=== PATIENT | female | born 1975 | race Caucasian/White ===

== ENCOUNTER 2017-07-25 21:28 | Emergency (ER) | payer OTHER ==
[2017-07-25 21:49] VITALS: BP 123/79; PULSE 67; TEMP 97.9; BMI 60.2
--- NOTE | 2017-07-25 21:49 | PDOC ---
Rapid Medical Evaluation Chief Complaint: Pain, Acute Time Seen by Provider: 07/25/17 21:46 Medical Evaluation: Allergies Allergy/AdvReac Type Severity Reaction Status Date / Time No Known Allergies Allergy Verified 03/23/12 21:13 07/25/17 21:46 I have performed a brief in-person evaluation of this patient The patient reports epigastric pain that pierces through to back x 1 hour Denies nausea, vomiting or diarrhea/constipation. States had homemade fried fish today with rice. Pertinent physical exam findings are: NAD unlabored breathing lungs clear +tenderness of epigastrium area with deep palpation abdomen soft I have ordered the following: ekg ordered The patient will proceed to the ED for further evaluation.
--- NOTE | 2017-07-25 23:10 | PDOC ---
Attending Attestation - Resident Resident Name: RolandJune - ED Attending Attestation I have performed the following: I have examined & evaluated the patient, The case was reviewed & discussed with the resident, I agree w/resident's findings & plan, Exceptions are as noted - HPI HPI: 07/26/17 00:55 42 yo female with no significant PMH p/w epigastric pain that started tonight HEENT wnl neck supple lungs cta b/l cvs [id number] abdominal exam +epigastric tenderness extremities wnl skin warm,dry,no rashes neuro no gross focal neuro deficits - Physicial Exam PE: 07/27/17 02:18 wnwd 42 yo female head normocephaluc atraumatic neck supple lungs cta b/l cvs [id number] abdominal pain epigastric pain ext no e/e/e neuro axox3 , ambulatory - Medical Decision Making 07/26/17 00:57 concern for cholecystitis/gerd/ulcer /possible atypical cardiac presentation 07/27/17 02:17 pt had gallstone but her symptoms resolved and she was able to eat and wanted to follow up as an outpt
[2017-07-25] MEDS ORDERED: SODIUM CHLORIDE 1,000 ML IV STA (23:34)
[2017-07-25] MEDS ORDERED: FAMOTIDINE 20 MG/50 ML IVPB 20 MG/50 ML MG IVPB ONE (23:34)
--- NOTE | 2017-07-25 23:43 | PDOC ---
History of Present Illness - General Chief Complaint: Pain, Acute Stated Complaint: ABD PAIN Time Seen by Provider: 07/25/17 21:46 History Source: Patient Exam Limitations: No Limitations - History of Present Illness Initial Comments: 42 YOF with h/o GERD and thyroiditis who p/w constant epigastric pain up to 9/ 10 maximum since 6 pm tonight which has been slightly improving since she arrived to the ED. It feels like pressure and radiates to her mid-back, is not alleviated or exacerbated by any factors, and she has never had this type of pain before. She took #3 baby ASA after the onset. She additionally notes chills and headache with onset concurrent with the abdominal pain, but the headache has resolved. She denies nausea, vomiting, diarrhea, constipation, fever, dizziness, dysuria, vaginal discharge, SOB, chest pain, or other symptoms. Her last menstrual period ended yesterday and was normal. Past History - Past Medical History Allergies/Adverse Reactions: Allergies Allergy/AdvReac Type Severity Reaction Status Date / Time No Known Allergies Allergy Verified 03/23/12 21:13 Home Medications: Ambulatory Orders Ciprofloxacin [Cipro (Restricted To Id)] 250 mg PO BID #6 tablet 04/17/15 Asthma: No Cancer: No Cardiac Disorders: No Diabetes: No HTN: No Seizures: No Thyroid Disease: No - Surgical History Abdominal Surgery: No - Reproductive History (#): 4 Para: 3 (uncomplicated ) Dysfunctional Uterine Bleeding: No - Suicide/Smoking/Psychosocial Hx Smoking Status: No Smoking History: Never smoked Have you smoked in the past 12 months: No Number of Cigarettes Smoked Daily: 0 Information on smoking cessation initiated: No Hx Alcohol Use: No Drug/Substance Use Hx: No Hx Substance Use Treatment: No Abd/GI Specific PMHX - Complaint Specific PMHX Colitis: No Diverticulitis: No Gall Bladder Disease: No GERD: No Hepatitis: No Irritable Bowel Synd (IBS): No Pancreatitis: No GI Ulcer Disease: No Review of Systems - Review of Systems Constitutional: Yes: Chills. No: Fever, Unexplained wgt Loss HEENTM: No: Nose Congestion, Throat Pain Respiratory: No: Cough, Shortness of Breath Cardiac (ROS): No: Chest Pain, Palpitations ABD/GI: Yes: Other (abdominal pain). No: Constipated, Diarrhea, Nausea, Vomiting : No: Burning, Dysuria Musculoskeletal: No: Back Pain, Neck Pain Integumentary: No: Bruising, Rash Neurological: Yes: Headache (resolved). No: Numbness, Tingling, Weakness, Dizziness Endocrine: No: Unexplained Weight Gain, Unexplained Weight Loss *Physical Exam - Vital Signs Last Vital Signs Temp Pulse Resp BP Pulse Ox 97.9 F 67 20 123/79 99 07/25/17 21:45 07/25/17 21:45 07/25/17 21:45 07/25/17 21:45 07/25/17 21:45 - Physical Exam General Appearance: Yes: Nourished, Appropriately Dressed, Mild Distress, Other (average BMI adult female laying in hospital bed with family at bedside, answers appropriately) HEENT: positive: EOMI, Normal Voice, Hearing Grossly Normal. negative: Scleral Icterus (R), Scleral Icterus (L), Nasal Congestion Neck: positive: Trachea midline, Supple. negative: Tender, Rigid Respiratory/Chest: positive: Lungs Clear, Normal Breath Sounds. negative: Respiratory Distress, Crackles, Rhonchi, Stridor, Wheezing Cardiovascular: positive: Regular Rhythm, Regular Rate. negative: Murmur Gastrointestinal/Abdominal: positive: Tender (epigastric and upper umbilical mild ttp), Soft, Increased Bowel Sounds. negative: Organomegaly, Pulsatile Mass , Guarding Musculoskeletal: positive: Normal Inspection. negative: CVA Tenderness, Decreased Range of Motion, Vertebral Tenderness Extremity: positive: Normal Capillary Refill, Normal Inspection, Normal Range of Motion. negative: Tender, Cyanosis Integumentary: positive: Normal Color, Dry, Warm. negative: Erythema, Rash, Bruising Neurologic: positive: building stonecutter II-XII NML intact (grossly), Fully Oriented, Alert, Normal Mood/Affect, Normal Response, Motor Strength 5/5 Heart Score/ECG Review - History History: Slightly suspicious ED Treatment Course - LABORATORY CBC & Chemistry Diagram: 07/26/17 00:00 07/26/17 00:00 Medical Decision Making - Medical Decision Making 42 YOF p/w epigastric and RUQ pain. On exam she has ttp epigastrium, minimal to RUQ. DDX IBNLT pancreatitis, cholecystitis, biliary colic, PUD, gastritis, GERD, etc. Ordered is CBCD, CMP, lipase, RUQ US. Lab work results non-directive, lipase negative, no significant leukocytosis, normal bili. RUQ US shows large >2 cm stone in gallbladder neck which could possibly be obstructing. However the patient is no longer painful after observation period. States she is hungry and tolerates trial of nalini crackers and apple juice. She is comfortable with plan to discharge home and f/u with GI as outpatient. Return precautions are discussed. She will return to ER for fever, increased pain, jaundice, confusion, dizziness/ HERNANDEZ. *DC/Admit/Observation/Transfer Diagnosis at time of Disposition: Cholelithiasis Qualifiers: Cholelithiasis location: gallbladder Cholecystitis presence: without cholecystitis Biliary obstruction: without biliary obstruction Qualified Code(s) : K80.20 - Calculus of gallbladder without cholecystitis without obstruction - Discharge Dispostion Disposition: HOME Condition at time of disposition: Stable Admit: No - Referrals Referrals: Tosha Flores MD [Primary Care Provider] - - Patient Instructions Printed Discharge Instructions: DI for Gallstones Additional Instructions: You were seen in the ER for abdominal pain. We did lab work which was all normal. We also did an ultrasound of your gallbladder and this showed a large stone within the gallbladder. There does not appear to be a current gallbladder infection or other problem that would require surgery right now. Please follow up with a sales development specialist about your gallbladder stone (Dr. Sahni at ) and tell him you were seen in the ER. Return to the ER for any new or worsening symptoms, especially if you have fever, vomiting, severe pain, yellowish coloration to your skin, confusion, or dizziness/headache. Avoid fatty /greasy foods because this can worsen pain with gallbladder stones. Print Language: SENEGALESE - Post Discharge Activity
[2017-07-26 00:17] LABS: BASOPHIL 0.6 % (0-2.0); EOSINOPHIL 0.5 % (0-4.5); MCH 27.4 pg (25.7-33.7); MCHC 33.5 g/dl (32.0-36.0); MEAN CELL VOLUME 81.7 fl (80-96); MEAN PLT VOLUME 8.5 fl (7.5-11.1); NEUTROPHILS 78.8 % (42.8-82.8); PLATELET COUNT 265 K/MM3 (134-434); RDW 14.7 % (11.6-15.6); WHITE BLOOD COUNT 9.7 K/mm3 (4.0-10.0)
[2017-07-26 00:58] LABS: ALBUMIN 4.3 g/dl (3.4-5.0); ALK PHOS 91 U/L (45-117); ANION GAP 12 (8-16); BILIRUBIN,TOTAL 0.3 mg/dL (0.2-1.0); CALCIUM 8.8 mg/dL (8.5-10.1); CO2 25 mmol/L (21-32); CREATININE 0.7 mg/dL (0.55-1.02); GLUCOSE,RANDOM 106 mg/dL (74-106); SGOT/AST 20 U/L (15-37); SGPT/ALT 33 U/L (12-78); TOT PROT 8.4 g/dl (6.4-8.2)
[2017-07-26 01:00] LABS: CPK 75 IU/L (26-192); TROPONIN I < 0.02 ng/ml (0.00-0.05)
[2017-07-26 01:40] LABS: URINE APPEARANCE CLEAR; URINE BILIRUBIN NEGATIVE (NEGATIVE); URINE BLOOD NEGATIVE (NEGATIVE); URINE COLOR STRAW; URINE GLUCOSE (UA) NEGATIVE (NEGATIVE); URINE KETONE NEGATIVE (NEGATIVE); URINE NITRITE NEGATIVE (NEGATIVE); URINE PROTEIN NEGATIVE (NEGATIVE); URINE UROBILINOGEN NEGATIVE mg/dL (0.2-1.0)
[2017-07-26 11:43] LABS: URINE LEUK ESTERASE Negative (NEGATIVE)
--- NOTE | 2017-07-26 12:41 | EKG ---
Test Reason : Blood Pressure : / mmHG Vent. Rate : 068 BPM Atrial Rate : 068 BPM P-R Int : 134 ms QRS Dur : 084 ms QT Int : 410 ms P-R-T Axes : 042 058 038 degrees QTc Int : 435 ms SINUS RHYTHM RIGHT AXIS DEVIATION NO PREVIOUS ECGS AVAILABLE REPEAT EKG IF CLINICALLY INDICATED Confirmed by NADINE STANTON MD ([id number]) on 07/26/2017 12:41:45 PM Referred By: Confirmed By:NADINE STANTON MD
== END 2017-07-26 04:19 | disposition home or self-care (01) ==
LOC: JER 21:28
PROC: 3E033GC Introduction of Other Therapeutic Substance into Peripheral Vein, Percutaneous Approach (ICD-10-PCS; principal; 2017-07-25)
DX: K80.20 Calculus of gallbladder without cholecystitis without obstruction (principal); K21.9 Gastro-esophageal reflux disease without esophagitis; E06.9 Thyroiditis, unspecified
CPT/HCPCS: 36415; 76705-TC; 80053; 81003; 82550; 83690; 84484; 84703; 85025; 87086; 93005; 93010; 96365; 99282-25

== ENCOUNTER 2018-12-23 20:19 | Inpatient (IN) | payer OTHER ==
--- NOTE | 2018-12-23 21:07 | PDOC ---
History of Present Illness - General Chief Complaint: Pain, Acute Stated Complaint: STOMACH PAIN Time Seen by Provider: 12/23/18 21:06 - History of Present Illness Initial Comments: 12/23/18 21:07 Ms. Lobo is a 42 yo female w/ pmh of GERD and thyroiditis who presents for evaluation of 3 day history of upper abdominal pain with additional nausea and vomiting. Patient reports the pain was intermittent at first however became worse today, prompting her visit. Patient denies any other symptoms at this time. She has not taken anything for the pain. The patient denies chest pain, shortness of breath, headache and dizziness. Denies fever, chills, diarrhea and constipation. Denies dysuria, frequency, urgency and hematuria. Past History - Past Medical History Allergies/Adverse Reactions: Allergies Allergy/AdvReac Type Severity Reaction Status Date / Time No Known Allergies Allergy Verified 12/23/18 20:35 Home Medications: Ambulatory Orders Ciprofloxacin [Cipro (Restricted To Id)] 250 mg PO BID #6 tablet 04/17/15 Asthma: No Cancer: No Cardiac Disorders: No COPD: No Diabetes: No HTN: No Seizures: No Thyroid Disease: No - Surgical History Abdominal Surgery: No - Reproductive History (#): 4 Para: 3 (uncomplicated ) Dysfunctional Uterine Bleeding: No - Immunization History Immunization Up to Date: Yes - Suicide/Smoking/Psychosocial Hx Smoking Status: No Smoking History: Never smoked Have you smoked in the past 12 months: No Number of Cigarettes Smoked Daily: 0 Hx Alcohol Use: No Drug/Substance Use Hx: No Hx Substance Use Treatment: No Review of Systems - Review of Systems Comments:: 12/23/18 23:14 GENERAL/CONSTITUTIONAL: No fever or chills. No weakness. HEAD, EYES, EARS, NOSE AND THROAT: No change in vision. No ear pain or discharge. No sore throat. CARDIOVASCULAR: No chest pain or shortness of breath RESPIRATORY: No cough, wheezing, or hemoptysis. GASTROINTESTINAL: +N/V + epigastric abdominal pain x3 days. GENITOURINARY: No dysuria, frequency, or change in urination. MUSCULOSKELETAL: No joint or muscle swelling or pain. No neck or back pain. SKIN: No rash NEUROLOGIC: No headache, vertigo, loss of consciousness, or change in strength/ sensation. ENDOCRINE: No increased thirst. No abnormal weight change HEMATOLOGIC/LYMPHATIC: No anemia, easy bleeding, or history of blood clots. ALLERGIC/IMMUNOLOGIC: No hives or skin allergy. *Physical Exam - Vital Signs Last Vital Signs Temp Pulse Resp BP Pulse Ox 98.3 F 79 16 117/66 100 12/23/18 20:33 12/23/18 20:33 12/23/18 20:33 12/23/18 20:33 12/23/18 20:33 - Physical Exam Comments: 12/23/18 23:15 GENERAL: Awake, alert, and fully oriented, in no acute distress HEAD: No signs of trauma, normocephalic, atraumatic EYES: PERRLA, EOMI, sclera anicteric, conjunctiva clear ENT: Auricles normal inspection, hearing grossly normal, nares patent, oropharynx clear without exudates. Moist mucosa NECK: Normal ROM, supple, no lymphadenopathy, JVD, or masses LUNGS: No distress, speaks full sentences, clear to auscultation bilaterally HEART: Regular rate and rhythm, normal S1 and S2, no murmurs, rubs or gallops, peripheral pulses normal and equal bilaterally. ABDOMEN: +Epigastric ttp, soft, normoactive bowel sounds. No guarding, no rebound. No masses EXTREMITIES: Normal inspection, Normal range of motion, no edema. No clubbing or cyanosis. NEUROLOGICAL: Cranial nerves II through XII grossly intact. Normal speech, normal gait, no focal sensorimotor deficits SKIN: Warm, Dry, normal turgor, no rashes or lesions noted. ED Treatment Course - LABORATORY CBC & Chemistry Diagram: 12/23/18 22:05 12/23/18 22:05 Medical Decision Making - Medical Decision Making 12/23/18 23:15 Ms. Lobo is a 43 yo female w/ pmh as described who presents for evaluation of symptoms concerning for GERD vs. atypical ACS vs. Gastritis. Patient evaluated with EKG and labs as below. Laboratory analysis grossly wnl as below. Patient vomited shortly after getting tylenol so IV given as replacement. Patient continuing to have pain following symptomatic relief with pepcid, fluids , maalox, viscous lidocaine - CT Abdomen/Pelvis ordered for further evaluation. 12/24/18 01:07 Patient noted to have cholecystitis on CT w/ 15mm stone in gall bladder neck. Patient will be admitted for further care. Surgery paged. 12/24/18 01:[address] Gutierrez who requested zosyn antibiosis and will evaluate. 12/24/18 01:57 Patient signed out to Dr. Choudhury for further evaluation. Laboratory Results - last 24 hr 12/23/18 12/23/18 12/23/18 22:05 22:05 22:05 WBC 9.9 RBC 4.29 Hgb 9.6 L Hct 29.7 L D MCV 69.3 L MCH 22.4 L MCHC 32.3 RDW 17.4 H Plt Count 318 MPV 8.9 Absolute Neuts (auto) 6.9 Neutrophils % 69.4 Lymphocytes % 23.2 D Monocytes % 5.9 Eosinophils % 0.9 Basophils % 0.6 Nucleated RBC % 0 Sodium 136 Potassium 3.5 Chloride 103 Carbon Dioxide 25 Anion Gap 8 BUN 12 Creatinine 0.6 Creat Clearance w eGFR 109.63 Random Glucose 113 H Calcium 8.8 Total Bilirubin 0.3 AST 18 ALT 26 Alkaline Phosphatase 84 Creatine Kinase Troponin I Total Protein 7.9 Albumin 3.9 Lipase 129 Serum , Qual Urine Color Yellow Urine Appearance Clear Urine pH 6.0 Ur Specific [place] 1.010 Urine Protein Negative Urine Glucose (UA) Negative Urine Ketones Negative Urine Blood Negative Urine Nitrite Negative Urine Bilirubin Negative Urine Urobilinogen 1.0 Ur Leukocyte Esterase Negative 12/23/18 12/23/18 22:05 22:05 WBC RBC Hgb Hct MCV MCH MCHC RDW Plt Count MPV Absolute Neuts (auto) Neutrophils % Lymphocytes % Monocytes % Eosinophils % Basophils % Nucleated RBC % Sodium Potassium Chloride Carbon Dioxide Anion Gap BUN Creatinine Creat Clearance w eGFR Random Glucose Calcium Total Bilirubin AST ALT Alkaline Phosphatase Creatine Kinase 65 Troponin I < 0.02 Total Protein Albumin Lipase Serum , Qual Negative Urine Color Urine Appearance Urine pH Ur Specific [place] Urine Protein Urine Glucose (UA) Urine Ketones Urine Blood Urine Nitrite Urine Bilirubin Urine Urobilinogen Ur Leukocyte Esterase 12/24/18 01:59 *DC/Admit/Observation/Transfer Diagnosis at time of Disposition: Cholecystitis - Discharge Dispostion Decision to Admit order: Yes - Referrals - Patient Instructions - Post Discharge Activity
--- NOTE | 2018-12-23 21:08 | PDOC ---
Attending Attestation - HPI HPI: This patient is a 43 year old slovenian speaking female with PMHx of GERD and thyroiditis who presents with a 5 day history of worsening epigastric pain. She describes her abdominal pain as a burning, squeezing sensation that was initially intermittent, and now constant. She reports associated nausea but denies vomit. Denies prior history of abdominal pain. She is uncomfortable appearing upon presentation. - Physicial Exam PE: GENERAL: Awake, alert, and fully oriented, uncomfortable appearing. HEAD: No signs of trauma LUNGS: Breath sounds equal, clear to auscultation bilaterally. No wheezes, and no crackles HEART: Regular rate and rhythm, normal S1 and S2, no murmurs, rubs or gallops ABDOMEN: Soft, epigastric tenderness upon palpation, normoactive bowel sounds. No guarding, no rebound. No masses EXTREMITIES: Normal range of motion, no edema. No clubbing or cyanosis. No cords, erythema, or tenderness NEUROLOGICAL: Cranial nerves II through XII grossly intact. Normal speech. SKIN: Warm, Dry, normal turgor, no rashes or lesions noted. <Amena Parnell - Last Filed: 12/23/18 21:55> - Resident Resident Name: Prateek Akhtar - Medical Decision Making 12/23/18 23:06 Pt presents to the ED complaining of epigastric pain and nausea without vomiting. Differential included gastritis, pancreatitis, less likely biliary disease and less likely ACS. Labs are within normal limits, including comprehensive metabolic panel and cardiac profile. EKG is normal. Patient feels improved after pepcid and zofran. Will discharge home with rx for pepcid. 12/24/18 01:13 Patient had persistent pain, so CT abdomen and pelvis was performed that shows cholecystitis with very large stone in gallbladder neck. Will admit to surgery and start antibiotics. <Shara Mata - Last Filed: 12/24/18 01:14> Attestations - Attestations 12/23/18 21:53 Documentation prepared by Amena Parnell, acting as medical education coordinator for Shara Mata MD. <Amena Parnell - Last Filed: 12/23/18 21:55>
[2018-12-23] MEDS ORDERED: LIDOCAINE VISCOUS 2% ORAL/TOP 20 ML UNIT-DOSE CUP MM ONE (21:15)
[2018-12-23] MEDS ORDERED: SODIUM CHLORIDE 1,000 ML IV STA (21:15)
[2018-12-23] MEDS ORDERED: FAMOTIDINE 20 MG/50 ML IVPB 20 MG/50 ML MG IVPB ONE ×2 (21:15→21:40)
[2018-12-23] MEDS ORDERED: MAG HYDROX/AL HYDROX/SIMETH 30 ML UNIT-DOSE CUP PO ONE (21:15)
[2018-12-23] MEDS ORDERED: ACETAMINOPHEN 500 MG TABLET (FP) PO ONE (21:16)
[2018-12-23] MEDS ORDERED: ACETAMINOPHEN 325 MG TABLET (FP) ONE (21:39)
[2018-12-23] MEDS ORDERED: LIDOCAINE VISCOUS 2% ORAL/TOP 20 ML UNIT-DOSE CUP ONE (21:39)
[2018-12-23] MEDS ORDERED: MAG HYDROX/AL HYDROX/SIMETH 30 ML UNIT-DOSE CUP ONE (21:40)
[2018-12-23 22:22] LABS: BASO % 0.6 % (0-2.0); EOS % 0.9 % (0-4.5); HEMATOCRIT 29.7 % (32.4-45.2); HEMOGLOBIN 9.6 GM/dL (10.7-15.3); LYMPH % 23.2 % (8-40); MCH 22.4 pg (25.7-33.7); MCHC 32.3 g/dl (32.0-36.0); MEAN CELL VOLUME 69.3 fl (80-96); MEAN PLT VOLUME 8.9 fl (7.5-11.1); MONO % 5.9 % (3.8-10.2); NEUT % 69.4 % (42.8-82.8); PLATELET COUNT 318 K/MM3 (134-434); RBC 4.29 M/mm3 (3.60-5.2); RDW 17.4 % (11.6-15.6); WHITE BLOOD COUNT 9.9 K/mm3 (4.0-10.0)
[2018-12-23 22:25] LABS: URINE APPEARANCE CLEAR; URINE BILIRUBIN NEGATIVE (NEGATIVE); URINE COLOR YELLOW; URINE GLUCOSE (UA) NEGATIVE (NEGATIVE); URINE KETONE NEGATIVE (NEGATIVE); URINE LEUK ESTERASE NEGATIVE (NEGATIVE); URINE NITRITE NEGATIVE (NEGATIVE); URINE PROTEIN NEGATIVE (NEGATIVE)
[2018-12-23 22:55] LABS: ALBUMIN 3.9 g/dl (3.4-5.0); ALK PHOS 84 U/L (45-117); ANION GAP 8 MMOL/L (8-16); BILIRUBIN,TOTAL 0.3 mg/dL (0.2-1); BLOOD UREA NITROGEN 12 mg/dL (7-18); CALCIUM 8.8 mg/dL (8.5-10.1); CHLORIDE 103 mmol/L (98-107); CO2 25 mmol/L (21-32); CREATININE 0.6 mg/dL (0.55-1.3); GLUCOSE,RANDOM 113 mg/dL (74-106); LIPASE 129 U/L (73-393); POTASSIUM 3.5 mmol/L (3.5-5.1); SGOT/AST 18 U/L (15-37); SGPT/ALT 26 U/L (13-61); SODIUM 136 mmol/L (136-145); TOT PROT 7.9 g/dl (6.4-8.2)
[2018-12-23] MEDS ORDERED: ACETAMINOPHEN 1000 MG/100 ML VIAL (NON FORMULARY) IVPB ONE (23:20)
[2018-12-23] MEDS ORDERED: ACETAMINOPHEN INJECTION 100 ML IVPB ONE (23:33)
[2018-12-24] MEDS ORDERED: morphine CARPU-JECT 4 MG/1 ML DISP.SYRIN IVPUSH ONE (00:39)
[2018-12-24] MEDS ORDERED: morphine SULFATE 4 MG/ML VIAL ONE (01:08)
[2018-12-24] MEDS ORDERED: PIPERACILLIN/TAZOB 3.375 GM 3.375 GM in DEXTROSE 5%-WATER - 50 ML IVPB ONE (01:25)
[2018-12-24] MEDS ORDERED: PIPERACILLIN/TAZOB 3.375 GM 3.375 GM/50 ML BAG IVPB ONE ×2 (01:28→08:45)
--- NOTE | 2018-12-24 02:45 | HP ---
CHIEF COMPLAINT: Nausea, vomiting and abdominal pain PCP: HISTORY OF PRESENT ILLNESS: Pt. is a 43 y.o. Nauruan-speaking F w/ PMHx. of GERD presents to with nausea, vomiting and abdominal pain. at bedside and assisted in translating. Pt. states the abdominal pain started 3 days ago and was intermittent. Over the last 24 hours the pain has worsened and become constant. Pt. endorses nausea and had one episode of non-bloody emesis. Pt. states the pain starts in the epigastrium and penetrates to the back. Pt. states that at home she took 1 pill of Tylenol for the pain with minimal effect. Pt. states that she last had her LMP was from December 08-December 15( unusually long). She states that it has been irregular for quite some time now. She doesn't follow up with an OB/ DIRECTOR REVENUE and cannot recount her last visit to an OB /DIRECTOR REVENUE. Pt. denies any constipation, diarrhea, fevers, chills, shortness of breath , dysuria, hematuria, melena, or hematochezia. ER course was notable for: (1)CT A/P, Surgery consult and discussion (2)Zosyn, EKG, 1L NS (3)Tylenol, Famotidine, Mag Ox, Morphine and Lidocaine PAST MEDICAL HISTORY: GERD and Thyroiditis? PAST SURGICAL HISTORY: Left Eye Cataract Surgery Social History: Smoking: Denies, never Alcohol: Denies Drugs: Denies Family History: Denies Allergies No Known Allergies Allergy (Verified 12/23/18 20:35) HOME MEDICATIONS: Home Medications Medication Instructions Recorded Ciprofloxacin [Cipro (Restricted 250 mg PO BID #6 tablet 04/17/15 To Id)] REVIEW OF SYSTEMS As per HPI PHYSICAL EXAMINATION Vital Signs - 24 hr 12/23/18 20:33 Temperature 98.3 F Pulse Rate 79 Respiratory 16 Rate Blood Pressure 117/66 O2 Sat by Pulse 100 Oximetry (%) GENERAL: Awake, alert, and fully oriented, in moderate distress due to pain. HEAD: Normal with no signs of trauma. EYES: Pupils equal, round and reactive to light, extraocular movements intact, sclera anicteric, conjunctiva clear. No lid lag. EARS, NOSE, THROAT: Ears normal, nares patent, oropharynx clear without exudates. Moist mucous membranes. NECK: Normal range of motion, supple without lymphadenopathy, JVD, or masses. LUNGS: Breath sounds equal, clear to auscultation bilaterally. No wheezes, and no crackles. No accessory muscle use. HEART: Regular rate and rhythm, normal S1 and S2 without murmur ABDOMEN: Soft, diffuse tenderness to palpation most prominent in epigastrium, Gloria Sign Positive, not distended, normoactive bowel sounds, no guarding, no rebound, no masses. No hepatomegaly or splenomegaly. MUSCULOSKELETAL: Normal range of motion at all joints. No bony deformities or tenderness. No CVA tenderness. UPPER EXTREMITIES: 2+ pulses, warm, well-perfused. No cyanosis. No clubbing. No peripheral edema. LOWER EXTREMITIES: 2+ dorsal pedal pulses, warm, well-perfused. No calf tenderness. No peripheral edema. NEUROLOGICAL: Normal speech. PSYCHIATRIC: Cooperative. Good eye contact. Appropriate mood and affect. SKIN: Warm, dry, normal turgor, no rashes or lesions noted, normal capillary refill. Laboratory Results - last 24 hr 12/23/18 12/23/18 12/23/18 22:05 22:05 22:05 WBC 9.9 RBC 4.29 Hgb 9.6 L Hct 29.7 L D MCV 69.3 L MCH 22.4 L MCHC 32.3 RDW 17.4 H Plt Count 318 MPV 8.9 Absolute Neuts (auto) 6.9 Neutrophils % 69.4 Lymphocytes % 23.2 D Monocytes % 5.9 Eosinophils % 0.9 Basophils % 0.6 Nucleated RBC % 0 Sodium 136 Potassium 3.5 Chloride 103 Carbon Dioxide 25 Anion Gap 8 BUN 12 Creatinine 0.6 Creat Clearance w eGFR 109.63 Random Glucose 113 H Calcium 8.8 Total Bilirubin 0.3 AST 18 ALT 26 Alkaline Phosphatase 84 Creatine Kinase Troponin I Total Protein 7.9 Albumin 3.9 Lipase 129 Serum , Qual Urine Color Yellow Urine Appearance Clear Urine pH 6.0 Ur Specific [place] 1.010 Urine Protein Negative Urine Glucose (UA) Negative Urine Ketones Negative Urine Blood Negative Urine Nitrite Negative Urine Bilirubin Negative Urine Urobilinogen 1.0 Ur Leukocyte Esterase Negative 12/23/18 12/23/18 22:05 22:05 WBC RBC Hgb Hct MCV MCH MCHC RDW Plt Count MPV Absolute Neuts (auto) Neutrophils % Lymphocytes % Monocytes % Eosinophils % Basophils % Nucleated RBC % Sodium Potassium Chloride Carbon Dioxide Anion Gap BUN Creatinine Creat Clearance w eGFR Random Glucose Calcium Total Bilirubin AST ALT Alkaline Phosphatase Creatine Kinase 65 Troponin I < 0.02 Total Protein Albumin Lipase Serum , Qual Negative Urine Color Urine Appearance Urine pH Ur Specific [place] Urine Protein Urine Glucose (UA) Urine Ketones Urine Blood Urine Nitrite Urine Bilirubin Urine Urobilinogen Ur Leukocyte Esterase ASSESSMENT/PLAN: Pt. is a 43 y.o. Nauruan-speaking F w/ PMHx. of GERD presents to with nausea, vomiting and abdominal pain. Labs notable for anemia to 9.6 and LFTs wnl. Physical Exam notable for epigastric tenderness #Abdominal Pain 2/2 Cholelithiasis Preliminary read on CT A/P shows 15mm stone in gallbladder neck w/o biliary duct dilatation; f/u official read Surgery consulted (Dr. Gutierrez)- started Zosyn No elevation in WBCs (borderline @ 9.9), afebrile Lipase:129; LFTs wnl c/w Protonix 40mg IV UA - Morphine Q4H PRN f/u CXR #Anemia HgB: 9.6 likely iron deficiency anemia as Pt. endorses irregular menses unusually long LMP, RDW: 17.4 and MCV of 69.3 f/u iron studies Pt. would benefit from outpatient [facility] referral as Pt. denies ever seeing one. Incidental finding of involuting ovarian cyst. #FEN LR @ 150 monitor electrolyte and replete as needed NPO #DVT Ppx. TEDs and SCDs Visit type - Emergency Visit Emergency Visit: Yes ED Registration Date: 12/24/18 Care time: The patient presented to the Emergency Department on the above date and was hospitalized for further evaluation of their emergent condition. - New Patient This patient is new to me today: Yes Date on this admission: 12/24/18 - Critical Care Critical Care patient: No
[2018-12-24] MEDS ORDERED: morphine SULFATE 4 MG/ML VIAL IVPUSH PRN (03:11)
[2018-12-24] MEDS ORDERED: ACETAMINOPHEN 1000 MG/100 ML VIAL (NON FORMULARY) IVPB PRN (03:16)
[2018-12-24] MEDS: LACTATED RINGERS SOLUTION 1,000 ML IV SCH ×2 (03:36→11:12)
--- NOTE | 2018-12-24 06:01 | PN ---
Teaching Attending Note Name of Resident: Miguel Angel Peoples ATTENDING PHYSICIAN STATEMENT I saw and evaluated the patient. I reviewed the resident's note and discussed the case with the resident. I agree with the resident's findings and plan as documented. SUBJECTIVE: OBJECTIVE: ASSESSMENT AND PLAN: this is a 43 y/o female presented to the hospital for RUQ pain, patient stated that the pain has been on and off associated with food, patient denied any fever or chills associated with her symptoms she is overweight woman, CT abdomen showed 1.5cm gallstone with slight inflammation on the wall patient was given pippercillin/tazobactam for possible cholecystitis but there is no documentation for the patient to have fever or elevated WBC will admit the patient to med-surg consult surgery consult ID for keep patient NPO pain management
[2018-12-24 07:03] LABS: BASO % 0.4 % (0-2.0); HEMATOCRIT 29.7 % (32.4-45.2); HEMOGLOBIN 9.5 GM/dL (10.7-15.3); LYMPH % 12.3 % (8-40); MCH 21.8 pg (25.7-33.7); MCHC 31.8 g/dl (32.0-36.0); MEAN CELL VOLUME 68.6 fl (80-96); MEAN PLT VOLUME 8.4 fl (7.5-11.1); MONO % 5.3 % (3.8-10.2); PLATELET COUNT 297 K/MM3 (134-434); RBC 4.33 M/mm3 (3.60-5.2); RDW 17.3 % (11.6-15.6); WHITE BLOOD COUNT 11.6 K/mm3 (4.0-10.0)
[2018-12-24 07:33] LABS: INR 1.1 (0.83-1.09)
[2018-12-24 07:40] LABS: ALBUMIN 3.6 g/dl (3.4-5.0); ALK PHOS 81 U/L (45-117); ANION GAP 8 MMOL/L (8-16); BILIRUBIN,TOTAL 0.4 mg/dL (0.2-1); BLOOD UREA NITROGEN 7 mg/dL (7-18); CALCIUM 7.7 mg/dL (8.5-10.1); CHLORIDE 104 mmol/L (98-107); CO2 24 mmol/L (21-32); CREATININE 0.5 mg/dL (0.55-1.3); GLUCOSE,RANDOM 112 mg/dL (74-106); MAGNESIUM 2.1 mg/dL (1.8-2.4); PHOSPHOROUS 3.2 mg/dL (2.5-4.9); POTASSIUM 3.7 mmol/L (3.5-5.1); SGOT/AST 24 U/L (15-37); SGPT/ALT 31 U/L (13-61); SODIUM 136 mmol/L (136-145); TOT PROT 7.2 g/dl (6.4-8.2)
[2018-12-24] MEDS ORDERED: PANTOPRAZOLE SODIUM 40 MG/100 ML BAG IVPB ONE (08:44)
[2018-12-24] MEDS: PANTOPRAZOLE SODIUM 40 MG VIAL IVPUSH SCH (09:12)
[2018-12-24] MEDS ORDERED: PIPERACILLIN/TAZOB 3.375 GM 3.375 GM in DEXTROSE 5%-WATER - 50 ML IVPB SCH (10:00)
[2018-12-24 10:41] LABS: ANISOCYTOSIS 1+; MACROCYTOSIS 0; PLATELET ESTIMATE NORMAL
[2018-12-24 11:05] VITALS: BMI 28.5
--- NOTE | 2018-12-24 12:14 | CON.GI ---
Consult Consult Specialty:: GI Reason for Consultation:: Cholecystitis - History of Present Illness Chief Complaint: 43 y.o. woman with several days of worsening epigastric pain, radiating to back. CT scan done in ER shows a distended GB with a slightly thickened wall and with a stone in the neck of the GB; no biliary dilation (my reading -- no official reading yet). Of note she was in the ER in 07/2017 for epigastric pain, ultrasound then also suggested possible mild cholecystitis. GI follow-up was advised on discharge, it is unclear whether she followed up with anyone. - History Source History Provided By: Patient, Medical Record - Past Medical History Renal/: Yes: Other (gbs pos in urine) - Past Surgical History Past Surgical History: Yes: None - Alcohol/Substance Use Hx Alcohol Use: No History of Substance Use: reports: None - Smoking History Smoking history: Never smoked Have you smoked in the past 12 months: No Aproximately how many cigarettes per day: 0 Home Medications - Allergies Allergies/Adverse Reactions: Allergies Allergy/AdvReac Type Severity Reaction Status Date / Time No Known Allergies Allergy Verified 12/23/18 20:35 - Home Medications Home Medications: Ambulatory Orders NK [No Known Home Medication] 12/24/18 Physical Exam-GI Vital Signs: Vital Signs Temperature 98.7 F 12/24/18 06:31 Pulse Rate 72 12/24/18 09:26 Respiratory Rate 20 12/24/18 09:26 Blood Pressure 122/60 12/24/18 09:26 O2 Sat by Pulse Oximetry (%) 99 12/24/18 10:32 Constitutional: Yes: Well Nourished ...Palpate: Yes: Tenderness (Minimal epigastric and RUQ tenderness to deep palpation. No rebound tenderness.) Labs: CBC, BMP 12/24/18 06:30 12/24/18 06:30 INR, PTT INR 1.10 (0.83-1.09) H 12/24/18 06:30 Imaging - Results Cat Scan: Image Reviewed (See HPI for my interpretation.) Problem List - Problems (1) Cholecystitis Code(s): K81.9 - CHOLECYSTITIS, UNSPECIFIED Assessment/Plan Biliary colic with acute cholecystitis. With normal LFTs and no bile duct dilation on CT scan there is no indication for ERCP. Appropriate treatment with antibiotics and surgery has already been implemented by the medical team. No need for further GI follow-up at present. CBCD WBC 11.6 K/mm3 (4.0-10.0) H 12/24/18 06:30 RBC 4.33 M/mm3 (3.60-5.2) 12/24/18 06:30 Hgb 9.5 GM/dL (10.7-15.3) L 12/24/18 06:30 Hct 29.7 % (32.4-45.2) L 12/24/18 06:30 MCV 68.6 fl (80-96) L 12/24/18 06:30 MCHC 31.8 g/dl (32.0-36.0) L 12/24/18 06:30 RDW 17.3 % (11.6-15.6) H 12/24/18 06:30 Plt Count 297 K/MM3 (134-434) 12/24/18 06:30 MPV 8.4 fl (7.5-11.1) 12/24/18 06:30 CMP Sodium 136 mmol/L (136-145) 12/24/18 06:30 Potassium 3.7 mmol/L (3.5-5.1) 12/24/18 06:30 Chloride 104 mmol/L (98-107) 12/24/18 06:30 Carbon Dioxide 24 mmol/L (21-32) 12/24/18 06:30 Anion Gap 8 MMOL/L (8-16) 12/24/18 06:30 BUN 7 mg/dL (7-18) 12/24/18 06:30 Creatinine 0.5 mg/dL (0.55-1.3) L 12/24/18 06:30 Creat Clearance w eGFR 135.30 (>60) 12/24/18 06:30 Random Glucose 112 mg/dL (74-106) H 12/24/18 06:30 Calcium 7.7 mg/dL (8.5-10.1) L 12/24/18 06:30 Total Bilirubin 0.4 mg/dL (0.2-1) 12/24/18 06:30 AST 24 U/L (15-37) 12/24/18 06:30 ALT 31 U/L (13-61) 12/24/18 06:30 Alkaline Phosphatase 81 U/L (45-117) 12/24/18 06:30 Total Protein 7.2 g/dl (6.4-8.2) 12/24/18 06:30 Albumin 3.6 g/dl (3.4-5.0) 12/24/18 06:30 CARDIAC ENZYMES Creatine Kinase 65 U/L (26-192) 12/23/18 22:05 Troponin I < 0.02 ng/ml (0.00-0.05) 12/24/18 03:40
--- NOTE | 2018-12-24 12:36 | CONSULT ---
Consult Consult Specialty:: General Surgery Reason for Consultation:: cholecystitis - History of Present Illness Chief Complaint: abdominal pain History of Present Illness: 43 yo female PMH GERD presents to with nausea, vomiting and abdominal pain. at bedside and assisted in translating. Pt. states the abdominal pain started 3 days ago and was intermittent. Over the last 24 hours the pain has worsened and become constant. Pt. endorses nausea and had one episode of non- bloody emesis. Pt. states the pain starts in the epigastrium and penetrates to the back. Pt. states that at home she took 1 pill of Tylenol for the pain with minimal effect. Pt. states that she last had her LMP was from December 08-December 15(unusually long). She states that it has been irregular for quite some time now. we were asked to assess. - History Source History Provided By: Patient, Medical Record Limitations to Obtaining History: No Limitations - Past Medical History Renal/: Yes: Other (gbs pos in urine) - Past Surgical History Past Surgical History: Yes: None - Alcohol/Substance Use Hx Alcohol Use: No History of Substance Use: reports: None - Smoking History Smoking history: Never smoked Have you smoked in the past 12 months: No Aproximately how many cigarettes per day: 0 Home Medications - Allergies Allergies/Adverse Reactions: Allergies Allergy/AdvReac Type Severity Reaction Status Date / Time No Known Allergies Allergy Verified 12/23/18 20:35 - Home Medications Home Medications: Ambulatory Orders NK [No Known Home Medication] 12/24/18 Review of Systems - Review of Systems Constitutional: denies: Chills, Fever Eyes: denies: Blind Spots, Recent Change in Vision HENT: denies: Difficult Swallowing, Throat Pain Neck: denies: Lumps, Pain on Movement, Tenderness Cardiovascular: denies: Chest Pain, Palpitations Respiratory: denies: Cough, SOB Gastrointestinal: reports: Abdominal Pain, Indigestion. denies: Bloating, Constipation, Diarrhea Genitourinary: denies: Burning, Dysuria, Flank Pain Breasts: reports: No Symptoms Reported. denies: Pain Musculoskeletal: denies: Joint Swelling, Muscle Pain, Muscle Cramps Integumentary: denies: Bruising, Pallor, Pruritis Neurological: denies: Seizure, Syncope Endocrine: denies: Unexplained Weight Gain, Unexplained Weight Loss Hematology/Lymphatic: denies: Easily Bruised, Excessive Bleeding Psychiatric: denies: Anxiety, Depression Physical Exam Vital Signs: Vital Signs Temperature 98.7 F 12/24/18 06:31 Pulse Rate 72 12/24/18 09:26 Respiratory Rate 20 12/24/18 09:26 Blood Pressure 122/60 12/24/18 09:26 O2 Sat by Pulse Oximetry (%) 99 12/24/18 10:32 Constitutional: Yes: Well Nourished, No Distress, Calm Eyes: Yes: Conjunctiva Clear, EOM Intact HENT: Yes: Atraumatic, Normocephalic Neck: Yes: Supple, Trachea Midline Cardiovascular: Yes: Regular Rate and Rhythm, S1, S2 Respiratory: Yes: Regular, CTA Bilaterally Gastrointestinal: Yes: Normal Bowel Sounds, Soft, Tenderness (RUQ tenderness), Tenderness, Epigastrium ...Rectal Exam: No: Guaiac Positive, Sphincter Tone Normal, Sphincter Tone Poor Renal/: No: CVA Tenderness - Left, Menses Present Breast(s): No: Breast Implants, Dimpling Musculoskeletal: No: Muscle Pain, Muscle Weakness Extremities: No: Cool, Cyanosis Integumentary: No: Jaundice, Laceration Neurological: Yes: Alert, Oriented Psychiatric: Yes: Alert, Oriented Labs: CBC, BMP 12/24/18 06:30 12/24/18 06:30 Imaging - Results Cat Scan: Report Reviewed, Image Reviewed (RUQ) Problem List - Problems (1) Cholecystitis Assessment/Plan: 43 you female with early acute cholecystitis, ammenable to surgery NPO and IVF hydration IV antibotics OR for laparoscopic cholecystectomy Discussed with patient risks, benefits and alternatives of laparoscopic possible open cholecystectomy, including but not limited to bleeding, infection , injury to adjacent structures, leak or injury, intraabdominal abscess, incisional hernia, need for further procedures, ; alternatives include antibiotics, delayed or no surgery - risks of this include failure of nonoperative therapy, perforation, sepsis, recurrence, . Patient desires to proceed with operation - will take to OR for above. Informed consent signed for same. Thank you for the opportunity to participate in the care of this patient. Code(s): K81.9 - CHOLECYSTITIS, UNSPECIFIED (2) Advanced maternal age (AMA) in Code(s): [id number] - (3) Cholelithiasis Code(s): K80.20 - CALCULUS OF GALLBLADDER W/O CHOLECYSTITIS W/O OBSTRUCTION Qualifiers: Cholelithiasis location: gallbladder Cholecystitis presence: without cholecystitis Biliary obstruction: without biliary obstruction Qualified Code(s): K80.20 - Calculus of gallbladder without cholecystitis without obstruction
--- NOTE | 2018-12-24 13:12 | PN ---
Progress Note (short form) - Note Progress Note: ID consult dictated imp/reccd 43 yo female admitted with RUQ pain c/w cholycystitis no fevers has had intermittent similar pain in the past no outpt antiibotics no history of recent admissions no diabetes d/w hospitalist will switch to ceftriaxone 2 g q24h/flagyl 500 q8h for lap choly in am Problem List - Problems (1) Cholecystitis Code(s): K81.9 - CHOLECYSTITIS, UNSPECIFIED
[2018-12-24] MEDS ORDERED: CEFAZOLIN 2 GM in DEXTROSE 5%-WATER 100 ML IVPB SCH (13:45)
[2018-12-24] MEDS ORDERED: CEFTRIAXONE 2 GM in DEXTROSE 5%-WATER 100 ML IVPB SCH (13:52)
[2018-12-24] MEDS: D5-1/2NS+20 MEQ KCL - 20 MEQ/1,000 ML INFUS.BAG IV SCH (14:44)
[2018-12-24] MEDS ORDERED: DEXTROSE 5%-WATER 100 ML IVPB ONE (15:58)
[2018-12-24] MEDS: CEFTRIAXONE 2 GM in DEXTROSE 5%-WATER 100 ML IVPB SCH (16:16)
--- NOTE | 2018-12-24 18:25 | PN ---
Progress Note (short form) - Note Progress Note: SUBJECTIVE: Ongoing abdominal discomfort. OBJECTIVE: Afebrile, Hemodynamically Stable. Last Vital Signs Temp Pulse Resp BP Pulse Ox 98.5 F 76 20 124/76 99 12/24/18 14:37 12/24/18 14:37 12/24/18 09:26 12/24/18 14:37 12/24/18 10:32 HEENT - Atraumatic, Normocephalic. Heart - S1, S2, RRR Lungs - clear to auscultation Abdomen - Soft, Epigastric/RUQ tenderness. Bowel Sounds normal. Extremities - no edema, no calf tenderness. Laboratory Results - last 24 hr 12/23/18 12/23/18 12/23/18 22:05 22:05 22:05 WBC 9.9 RBC 4.29 Hgb 9.6 L Hct 29.7 L D MCV 69.3 L MCH 22.4 L MCHC 32.3 RDW 17.4 H Plt Count 318 MPV 8.9 Absolute Neuts (auto) 6.9 Neutrophils % 69.4 Lymphocytes % 23.2 D Monocytes % 5.9 Eosinophils % 0.9 Basophils % 0.6 Nucleated RBC % 0 Hypochromia Platelet Estimate Polychromasia Poikilocytosis Anisocytosis Microcytosis Macrocytosis Stomatocytes Heriberto Cells PT with INR INR Sodium 136 Potassium 3.5 Chloride 103 Carbon Dioxide 25 Anion Gap 8 BUN 12 Creatinine 0.6 Creat Clearance w eGFR 109.63 Random Glucose 113 H Calcium 8.8 Phosphorus Magnesium Total Bilirubin 0.3 AST 18 ALT 26 Alkaline Phosphatase 84 Creatine Kinase Troponin I Total Protein 7.9 Albumin 3.9 Lipase 129 Serum , Qual Urine Color Yellow Urine Appearance Clear Urine pH 6.0 Ur Specific [place] 1.010 Urine Protein Negative Urine Glucose (UA) Negative Urine Ketones Negative Urine Blood Negative Urine Nitrite Negative Urine Bilirubin Negative Urine Urobilinogen 1.0 Ur Leukocyte Esterase Negative Stool Occult Blood Blood Type Antibody Screen 12/23/18 12/23/18 12/24/18 22:05 22:05 03:05 WBC RBC Hgb Hct MCV MCH MCHC RDW Plt Count MPV Absolute Neuts (auto) Neutrophils % Lymphocytes % Monocytes % Eosinophils % Basophils % Nucleated RBC % Hypochromia Platelet Estimate Polychromasia Poikilocytosis Anisocytosis Microcytosis Macrocytosis Stomatocytes [place] Cells PT with INR INR Sodium Potassium Chloride Carbon Dioxide Anion Gap BUN Creatinine Creat Clearance w eGFR Random Glucose Calcium Phosphorus Magnesium Total Bilirubin AST ALT Alkaline Phosphatase Creatine Kinase 65 Troponin I < 0.02 Total Protein Albumin Lipase Serum , Qual Negative Urine Color Urine Appearance Urine pH Ur Specific [place] Urine Protein Urine Glucose (UA) Urine Ketones Urine Blood Urine Nitrite Urine Bilirubin Urine Urobilinogen Ur Leukocyte Esterase Stool Occult Blood Negative Blood Type Antibody Screen 12/24/18 12/24/18 12/24/18 03:40 06:30 06:30 WBC 11.6 H RBC 4.33 Hgb 9.5 L Hct 29.7 L MCV 68.6 L MCH 21.8 L MCHC 31.8 L RDW 17.3 H Plt Count 297 MPV 8.4 Absolute Neuts (auto) 9.5 H Neutrophils % 82.0 Lymphocytes % 12.3 D Monocytes % 5.3 Eosinophils % 0.0 D Basophils % 0.4 Nucleated RBC % 0 Hypochromia 2+ Platelet Estimate Normal Polychromasia 1+ Poikilocytosis 1+ Anisocytosis 1+ Microcytosis 1+ Macrocytosis 0 Stomatocytes 1+ [place] Cells 0 PT with INR 13.00 INR 1.10 H Sodium Potassium Chloride Carbon Dioxide Anion Gap BUN Creatinine Creat Clearance w eGFR Random Glucose Calcium Phosphorus Magnesium Total Bilirubin AST ALT Alkaline Phosphatase Creatine Kinase Troponin I < 0.02 Total Protein Albumin Lipase Serum , Qual Urine Color Urine Appearance Urine pH Ur Specific [place] Urine Protein Urine Glucose (UA) Urine Ketones Urine Blood Urine Nitrite Urine Bilirubin Urine Urobilinogen Ur Leukocyte Esterase Stool Occult Blood Blood Type Antibody Screen 12/24/18 12/24/18 06:30 06:30 WBC RBC Hgb Hct MCV MCH MCHC RDW Plt Count MPV Absolute Neuts (auto) Neutrophils % Lymphocytes % Monocytes % Eosinophils % Basophils % Nucleated RBC % Hypochromia Platelet Estimate Polychromasia Poikilocytosis Anisocytosis Microcytosis Macrocytosis Stomatocytes Heriberto Cells PT with INR INR Sodium 136 Potassium 3.7 Chloride 104 Carbon Dioxide 24 Anion Gap 8 BUN 7 Creatinine 0.5 L Creat Clearance w eGFR 135.30 Random Glucose 112 H Calcium 7.7 L Phosphorus 3.2 Magnesium 2.1 Total Bilirubin 0.4 AST 24 ALT 31 Alkaline Phosphatase 81 Creatine Kinase Troponin I Total Protein 7.2 Albumin 3.6 Lipase Serum , Qual Urine Color Urine Appearance Urine pH Ur Specific [place] Urine Protein Urine Glucose (UA) Urine Ketones Urine Blood Urine Nitrite Urine Bilirubin Urine Urobilinogen Ur Leukocyte Esterase Stool Occult Blood Blood Type O POSITIVE Antibody Screen Negative Current Medications Generic Name Dose Route Start Last Admin Trade Name Ronda PRN Reason Stop Dose Admin Acetaminophen 1,000 mg 12/24/18 03:16 Ofirmev Injection - IVPB Q6H PRN PAIN OR FEVER Potassium Chloride/Dextrose/Sod Cl 20 meq in 1,000 mls @ 100 mls/hr 12/24/18 13:45 12/24/18 14:44 D5-1/2ns+20 Meq Kcl - IV 100 mls/hr ASDIR LISA Administration Metronidazole 500 mg in 100 mls @ 100 mls/hr 12/24/18 18:00 12/24/18 17:31 Flagyl 500mg Premixed Ivpb - IVPB 100 mls/hr Q8H-IV LISA Administration Ceftriaxone Sodium 2 gm/ 100 mls @ 200 mls/hr 12/24/18 16:00 12/24/18 16:16 Dextrose IVPB 200 mls/hr DAILY LISA Administration Protocol Morphine Sulfate 4 mg 12/24/18 03:11 Morphine Sulfate IVPUSH Q4H PRN PAIN LEVEL 7 - 10 Pantoprazole Sodium 40 mg 12/24/18 10:00 12/24/18 09:12 Protonix Iv IVPUSH 40 mg DAILY LISA Administration ASSESSMENT/PLAN: 43 year old female with history of GERD presents with epigastric abdominal pain , nausea, found to have acute cholecystitis. 1. Acute Cholecystitis CT A/P - 15mm stone in GB neck without biliary dilatation, official read pending. Evaluated by GI and Surgery - for OR in AM for laparoscopic cholecystectomy. NPO /IV Fluids. Eval by ID - Zosyn changed to IV Ceftriaxone and Flagyl 2. Microcytic Anemia, likely Iron deficiency Iron/Ferritin levels requested. No acute blood loss Will need PASTA PRESS OPERATOR, GI out-patient eval and Iron supplementation. GI Px - Protonix IV Visit type - Emergency Visit Emergency Visit: Yes ED Registration Date: 12/24/18 Care time: The patient presented to the Emergency Department on the above date and was hospitalized for further evaluation of their emergent condition. - New Patient This patient is new to me today: Yes Date on this admission: 12/24/18 - Critical Care Critical Care patient: No - Discharge Referral Referred to [facility] No
--- NOTE | 2018-12-24 22:54 | CONS ---
DATE OF CONSULTATION: 12/24/2018 REQUESTED BY: Hospitalist Service This is a 43-year-old woman who presented on the to the emergency room with several days of epigastric pain, radiating to the back. She had associated nausea, but no vomiting. There is no history of any fevers. Of note, she was seen in the ER at [facility] in July 2017 with abdominal pain, which she reports was very similar to this. She did not have any fever. She had a CAT scan done in the ER that showed acute calculous cholecystitis. She was started on Zosyn. I am asked to see her for antibiotic recommendations. She is currently resting comfortably, but with some continued abdominal discomfort. PAST MEDICAL HISTORY: Notable for GERD. PAST SURGICAL HISTORY: Notable for cataract surgery. SOCIAL HISTORY: There is no history of any cigarette, alcohol, or substance use. FAMILY HISTORY: Unremarkable. ALLERGIES: She has no allergies. MEDICATIONS: She takes no medicines at home. REVIEW OF SYSTEMS: As per HPI. PHYSICAL EXAMINATION: General: She is awake and alert. Vital Signs: Temperature 98.5, pulse of 76, blood pressure 124/76, respiratory rate is 20. She is saturating 99% on room air. HEENT: Head is normocephalic. Eyes are anicteric. Neck: Supple. Lungs: Clear to auscultation. Heart: Regular rate and rhythm. Abdomen: Soft. She has some mild right upper quadrant tenderness to deep palpation. Extremities: Without edema. LABORATORY: White count is 11.6, hemoglobin 9.5, platelets of 297. test is negative. BUN is 7 and creatinine is 0.5. LFTs are normal. Urinalysis is negative. No cultures were sent. ASSESSMENT AND PLAN: This is a 43-year-old woman with acute cholecystitis. She has no fever, does have discomfort on examination. Will treat her with ceftriaxone and Flagyl at this point. She comes from the community. She is not antibiotic experienced, so I think this would be reasonable coverage for her. She has been seen by Surgery with plans to have surgery in the morning. Case was discussed with the hospitalist as well as with Surgery. Duration of antibiotics to be determined by the time of surgery. CALEB BARCLAY M.D. [id number]
[2018-12-25] MEDS: D5-1/2NS+20 MEQ KCL - 20 MEQ/1,000 ML INFUS.BAG IV SCH ×2 (05:45→14:17)
[2018-12-25 08:35] LABS: BASO % 0.9 % (0-2.0); EOS % 0.8 % (0-4.5); HEMATOCRIT 26.9 % (32.4-45.2); HEMOGLOBIN 8.7 GM/dL (10.7-15.3); LYMPH % 35.5 % (8-40); MCH 22.1 pg (25.7-33.7); MCHC 32.1 g/dl (32.0-36.0); MEAN CELL VOLUME 68.8 fl (80-96); MEAN PLT VOLUME 8.7 fl (7.5-11.1); MONO % 11.7 % (3.8-10.2); NEUT % 51.1 % (42.8-82.8); PLATELET COUNT 261 K/MM3 (134-434); RBC 3.92 M/mm3 (3.60-5.2); RDW 17.2 % (11.6-15.6); WHITE BLOOD COUNT 7.1 K/mm3 (4.0-10.0)
[2018-12-25 08:48] LABS: ALK PHOS 74 U/L (45-117); ANION GAP 5 MMOL/L (8-16); BILIRUBIN,TOTAL 0.4 mg/dL (0.2-1); BLOOD UREA NITROGEN 5 mg/dL (7-18); CALCIUM 7.6 mg/dL (8.5-10.1); CHLORIDE 107 mmol/L (98-107); CO2 28 mmol/L (21-32); CREATININE 0.5 mg/dL (0.55-1.3); GLUCOSE,RANDOM 106 mg/dL (74-106); POTASSIUM 3.8 mmol/L (3.5-5.1); SGOT/AST 20 U/L (15-37); SGPT/ALT 25 U/L (13-61); SODIUM 140 mmol/L (136-145); TOT PROT 6.3 g/dl (6.4-8.2)
[2018-12-25] MEDS ORDERED: IRON SUCROSE INJECTION 200 MG in SODIUM CHLORIDE 90 ML IVPB ONE ×2 (09:11→13:15)
[2018-12-25] MEDS ORDERED: PIPERACILLIN/TAZOB 3.375 GM 3.375 GM in DEXTROSE 5%-WATER - 50 ML IVPB SCH (10:00)
[2018-12-25] MEDS ORDERED: IBUPROFEN 800 MG/8 ML IJ IVPB PRN (10:08)
[2018-12-25] MEDS ORDERED: ONDANSETRON 4 MG/2 ML VIAL IVPUSH PRN (10:08)
[2018-12-25] MEDS ORDERED: SODIUM CHLORIDE 1,000 ML IV SCH (10:15)
[2018-12-25] MEDS ORDERED: fentaNYL CITRATE 250 MCG/5 ML VIAL ONE (10:17)
[2018-12-25] MEDS ORDERED: ROCURONIUM BROMIDE 50 MG/5 ML VIAL ONE (10:17)
[2018-12-25] MEDS ORDERED: LIDOCAINE HCL/PF 2% SDV 5ML VIAL ONE (10:17)
[2018-12-25] MEDS ORDERED: PROPOFOL 20 ML ONE ×2 (10:17)
[2018-12-25] MEDS ORDERED: MIDAZOLAM HCL 2 MG/2 ML SINGLE DOSE VIAL ONE (10:18)
--- NOTE | 2018-12-25 10:32 | EKG ---
Test Reason : Blood Pressure : / mmHG Vent. Rate : 065 BPM Atrial Rate : 065 BPM P-R Int : 132 ms QRS Dur : 082 ms QT Int : 410 ms P-R-T Axes : 033 055 023 degrees QTc Int : 426 ms NORMAL SINUS RHYTHM NORMAL ECG WHEN COMPARED WITH ECG OF 25-JUL-2017 22:55, SINUS RHYTHM HAS REPLACED ELECTRONIC VENTRICULAR PACEMAKER Confirmed by DESI CARRANZA MD ([id number]) on 12/25/2018 10:32:13 AM Referred By: Confirmed By:DESI CARRANZA MD
[2018-12-25] MEDS ORDERED: BENZOIN TINCTURE SWABSTICK TP ONE (10:34)
[2018-12-25] MEDS ORDERED: CEFOXITIN SODIUM 1 GM IVPB ONE (10:34)
[2018-12-25] MEDS ORDERED: BUPIVACAINE HCL/PF 0.5% (5MG/ML) 10 ML VIAL ONE (10:34)
[2018-12-25] MEDS ORDERED: cefOXitin SODIUM 1 GM VIAL (RESTRICTED TO ID) IVPB ONE (10:40)
[2018-12-25] MEDS ORDERED: GLYCOPYRROLATE 0.2 MG/1 ML VIAL ONE (11:06)
[2018-12-25] MEDS ORDERED: NEOSTIGMINE METHYLSULFATE 0.5 MG/ML - 10 ML MDV ONE (11:06)
[2018-12-25] MEDS ORDERED: DEXAMETHASONE SOD PHOSPHATE 4 MG/1 ML VIAL ONE (11:06)
--- NOTE | 2018-12-25 11:53 | OP ---
Operative Note - Note: Operative Date: 12/25/18 Pre-Operative Diagnosis: Acute Cholecystitis Operation: laparoscopic Cholecystectomy Findings: edematous gallbladder with dense adhesions. critical view of safety established Post-Operative Diagnosis: Same as Pre-op Surgeon: Bernardo Gutierrez Gas Transfer Operator: Yared José Anesthesiologist/SITE PROMOTION AGENT: Afsaneh Calabrese Anesthesia: General, Local (0.5% marcaine) Specimens Removed: gallbladder and stone Estimated Blood Loss (mls): 10 Fluid Volume Replaced (mls): 800 Operative Report Dictated: Yes
[2018-12-25] MEDS ORDERED: ACETAMINOPHEN 1000 MG/100 ML VIAL (NON FORMULARY) IVPB PRN (12:07)
[2018-12-25] MEDS ORDERED: morphine SULFATE 4 MG/ML VIAL IVPUSH PRN (12:07)
[2018-12-25] MEDS ORDERED: ACETAMINOPHEN 1000 MG/100 ML VIAL (NON FORMULARY) IVPB ONE (12:15)
[2018-12-25] MEDS ORDERED: ACETAMINOPHEN INJECTION 100 ML IVPB ONE (12:35)
[2018-12-25] MEDS: CEFTRIAXONE 2 GM in DEXTROSE 5%-WATER 100 ML IVPB SCH (14:14)
[2018-12-25] MEDS: PANTOPRAZOLE SODIUM 40 MG VIAL IVPUSH SCH (14:14)
--- NOTE | 2018-12-25 14:36 | PN ---
Teaching Attending Note Name of Resident: Miguel Angel Peoples ATTENDING PHYSICIAN STATEMENT I saw and evaluated the patient. I reviewed the resident's note and discussed the case with the resident. I agree with the resident's findings and plan as documented. SUBJECTIVE: Pain well controlled post-op. No fever. Tolerating oral intake OBJECTIVE: Afebrile, Hemodynamically Stable. Last Vital Signs Temp Pulse Resp BP Pulse Ox 98.5 F 74 18 109/67 95 12/25/18 14:04 12/25/18 14:04 12/25/18 14:04 12/25/18 14:04 12/25/18 14:04 Heart - S1, S2, RRR Lungs - clear to auscultation Abdomen - Soft, Epigastric/RUQ tenderness. Surgical Trochar sites clean. Bowel Sounds normal. Extremities - no edema, no calf tenderness. Laboratory Results - last 24 hr 12/25/18 12/25/18 06:30 06:30 WBC 7.1 RBC 3.92 Hgb 8.7 L Hct 26.9 L MCV 68.8 L MCH 22.1 L MCHC 32.1 RDW 17.2 H Plt Count 261 MPV 8.7 Absolute Neuts (auto) 3.6 Neutrophils % 51.1 D Lymphocytes % 35.5 D Monocytes % 11.7 H D Eosinophils % 0.8 D Basophils % 0.9 Nucleated RBC % 0 Sodium 140 Potassium 3.8 Chloride 107 Carbon Dioxide 28 Anion Gap 5 L BUN 5 L Creatinine 0.5 L Creat Clearance w eGFR 135.30 Random Glucose 106 Calcium 7.6 L Ferritin 2.7 L Total Bilirubin 0.4 AST 20 ALT 25 Alkaline Phosphatase 74 Total Protein 6.3 L Albumin 3.0 L Current Medications Generic Name Dose Route Start Last Admin Trade Name Freq PRN Reason Stop Dose Admin Acetaminophen 1,000 mg 12/25/18 12:07 Ofirmev Injection - IVPB Q6H PRN PAIN OR FEVER Ceftriaxone Sodium 2 gm in 50 mls @ 100 mls/hr 12/26/18 10:00 Ceftriaxone 2 Gm-D5w Bag IVPB DAILY LISA Protocol Potassium Chloride/Dextrose/Sod Cl 20 meq in 1,000 mls @ 100 mls/hr 12/25/18 12:07 12/25/18 14:17 D5-1/2ns+20 Meq Kcl - IV 100 mls/hr ASDIR LISA Administration Metronidazole 500 mg in 100 mls @ 100 mls/hr 12/25/18 18:00 Flagyl 500mg Premixed Ivpb - IVPB Q8H-IV LISA Morphine Sulfate 4 mg 12/25/18 12:07 12/25/18 14:21 Morphine Sulfate IVPUSH 4 mg Q4H PRN Administration PAIN LEVEL 7 - 10 Pantoprazole Sodium 40 mg 12/26/18 10:00 Protonix Iv IVPUSH DAILY LISA ASSESSMENT/PLAN: 43 year old female with history of GERD presents with epigastric abdominal pain , nausea, found to have acute cholecystitis. 1. Acute Cholecystitis CT A/P - 15mm stone in GB neck without biliary dilatation, official read pending. Evaluated by GI and Surgery - currently immediately post-op. Diet resumed. No need for further Abx therapy. Ceftriaxone/Flagyl stopped. If feeding okay and feels well, can be discharged later today. 2. Microcytic Anemia, likely Iron deficiency Ferritin 2.7 No evidence of acute blood loss Will need MEAT AND POULTRY INSPECTOR, GI out-patient eval and Iron supplementation.
--- NOTE | 2018-12-25 14:53 | PN ---
Physical Exam: SUBJECTIVE: Patient seen and examined OBJECTIVE: Vital Signs Period Temp Pulse Resp BP Sys/Rocha Pulse Ox Last 24 Hr 98.4 F-99.1 F 64-80 9-21 96-120/54-70 95-100 GENERAL: The patient is awake, alert, and fully oriented, in no acute distress. HEAD: Normal with no signs of trauma. EYES: PERRL, extraocular movements intact, sclera anicteric, conjunctiva clear. No ptosis. ENT: Ears normal, nares patent, oropharynx clear without exudates, moist mucous membranes. NECK: Trachea midline, full range of motion, supple. LUNGS: Breath sounds equal, clear to auscultation bilaterally, no wheezes, no crackles, no accessory muscle use. HEART: Regular rate and rhythm, S1, S2 without murmur, rub or gallop. ABDOMEN: Soft, nontender, nondistended, normoactive bowel sounds, no guarding, no rebound, no hepatosplenomegaly, no masses. EXTREMITIES: 2+ pulses, warm, well-perfused, no edema. NEUROLOGICAL: Cranial nerves II through XII grossly intact. Normal speech, gait not observed. PSYCH: Normal mood, normal affect. SKIN: Warm, dry, normal turgor, no rashes or lesions noted Laboratory Results - last 24 hr 12/25/18 12/25/18 06:30 06:30 WBC 7.1 RBC 3.92 Hgb 8.7 L Hct 26.9 L MCV 68.8 L MCH 22.1 L MCHC 32.1 RDW 17.2 H Plt Count 261 MPV 8.7 Absolute Neuts (auto) 3.6 Neutrophils % 51.1 D Lymphocytes % 35.5 D Monocytes % 11.7 H D Eosinophils % 0.8 D Basophils % 0.9 Nucleated RBC % 0 Sodium 140 Potassium 3.8 Chloride 107 Carbon Dioxide 28 Anion Gap 5 L BUN 5 L Creatinine 0.5 L Creat Clearance w eGFR 135.30 Random Glucose 106 Calcium 7.6 L Ferritin 2.7 L Total Bilirubin 0.4 AST 20 ALT 25 Alkaline Phosphatase 74 Total Protein 6.3 L Albumin 3.0 L Active Medications Generic Name Dose Route Start Last Admin Trade Name Freq PRN Reason Stop Dose Admin Acetaminophen 1,000 mg 12/25/18 12:07 Ofirmev Injection - IVPB Q6H PRN PAIN OR FEVER Ceftriaxone Sodium 2 gm in 50 mls @ 100 mls/hr 12/26/18 10:00 Ceftriaxone 2 Gm-D5w Bag IVPB DAILY LISA Protocol Potassium Chloride/Dextrose/Sod Cl 20 meq in 1,000 mls @ 100 mls/hr 12/25/18 12:07 12/25/18 14:17 D5-1/2ns+20 Meq Kcl - IV 100 mls/hr ASDIR LISA Administration Metronidazole 500 mg in 100 mls @ 100 mls/hr 12/25/18 18:00 Flagyl 500mg Premixed Ivpb - IVPB Q8H-IV LISA Morphine Sulfate 4 mg 12/25/18 12:07 12/25/18 14:21 Morphine Sulfate IVPUSH 4 mg Q4H PRN Administration PAIN LEVEL 7 - 10 Pantoprazole Sodium 40 mg 12/26/18 10:00 Protonix Iv IVPUSH DAILY LISA ASSESSMENT/PLAN:
--- NOTE | 2018-12-25 17:00 | DS ---
Physical Exam: SUBJECTIVE: Patient seen and examined. Pt. endorses some incisional tenderness, but denies any nausea, vomiting or diarrhea. Pt. endorses passing gas but denies passing stool. OBJECTIVE: Vital Signs Period Temp Pulse Resp BP Sys/Rocha Pulse Ox Last 24 Hr 98.4 F-99.1 F 64-80 9-21 96-120/54-70 95-100 PHYSICAL EXAM GENERAL: The patient is awake, alert, and fully oriented, in no acute distress, looks less pale today. HEAD: Normal with no signs of trauma. EYES: sclera anicteric, conjunctiva clear. ENT: Ears normal, nares patent, moist mucous membranes. NECK: Trachea midline, full range of motion, supple. LUNGS: Breath sounds equal, clear to auscultation bilaterally, no wheezes, no crackles, no accessory muscle use. HEART: Regular rate and rhythm, S1, S2 without murmur, rub or gallop. ABDOMEN: Soft, mild incisional tenderness, nondistended, normoactive bowel sounds, no erythema, no guarding, no rebound EXTREMITIES: 2+ pulses, warm, well-perfused, no calf tenderness, no edema. NEUROLOGICAL: Cranial nerves II through XII grossly intact. Normal speech, gait not observed. PSYCH: Normal mood, normal affect. SKIN: Warm, dry, normal turgor, no rashes or lesions noted. LABS Laboratory Results - last 24 hr 12/25/18 12/25/18 06:30 06:30 WBC 7.1 RBC 3.92 Hgb 8.7 L Hct 26.9 L MCV 68.8 L MCH 22.1 L MCHC 32.1 RDW 17.2 H Plt Count 261 MPV 8.7 Absolute Neuts (auto) 3.6 Neutrophils % 51.1 D Lymphocytes % 35.5 D Monocytes % 11.7 H D Eosinophils % 0.8 D Basophils % 0.9 Nucleated RBC % 0 Sodium 140 Potassium 3.8 Chloride 107 Carbon Dioxide 28 Anion Gap 5 L BUN 5 L Creatinine 0.5 L Creat Clearance w eGFR 135.30 Random Glucose 106 Calcium 7.6 L Ferritin 2.7 L Total Bilirubin 0.4 AST 20 ALT 25 Alkaline Phosphatase 74 Total Protein 6.3 L Albumin 3.0 L HOSPITAL COURSE: Date of Admission:12/24/18 Date of Discharge: 12/26/18 Pt. is a a 43 y.o. F w/o PMHx. admitted for acute cholecystitis as confirmed on CT scan. Pt. was found to be anemic to 9.6 on admission and required 2 IV Venofer treatments. Cholecystectomy completed by Dr. Gutierrez and outpatient recommendations as detailed below. Pt. started on new medications as detailed below. We recommended outpatient follow up for PCP, GI, and PRODUCTION MINER as detailed below. Hospital course discussed and agreed upon with Pt., family and medical staff. Minutes to complete discharge: 35 Discharge Summary Reason For Visit: CHOLECYSTITIS Current Active Problems Cholecystitis (Acute) Condition: Improved - Instructions Diet, Activity, Other Instructions: You came in with abdominal pain and we did imaging that showed you have cholecystitis. We removed your gallbladder. We found you to be anemic on our blood tests. We have started you on Iron tablets 325mg ONCE a day. Please take as prescribed , this medication is to help increase your blood count. You may experience dark colored stool and increased difficulty passing stool, this is a known side effect from the medication. Discuss with PCP for another dose of intravenous iron Please alternate between Tylenol and Ibuprofen for your pain. DO NOT take more than 4,000mg of Tylenol per 24hours. DO NOT take more than 2,400mg of Ibuprofen per 24 hours. PLease follow up with surgeon, Dr Gutierrez,. his specific instructions are located below. You should see him in 1 week Please follow up with a PRODUCTION MINER, Dr. Gomez, within 1 week. Please discuss the small left involuting ovarian cyst that was found on imaging. Please follow you with your Charter Representative within 1 week to discuss getting a colonoscopy, as the source of your blood loss may be related to your colon. Please follow up with your Primary care Physician within a few DAYS, to draw blood for a CBC and to follow up Iron studies in 3 months. If you do not have one, we have provided Dr. Webb for you. Please return to the ED if you are experiencing worsening abdominal pain, nausea or vomiting that won't stop, notice blood in the stool or urine, fevers, chills, unable to pass stool for more than 3 days, difficulty passing urine or any other concerning symptoms. Post Operative Instructions Physical activity Resume your normal everyday activity as tolerated no heavy lifting or exercise until seen by your surgeon. You may walk unlimited amounts of and climb stairs. You may resume driving the car when you feel safe and comfortable behind the wheel and are no longer taking narcotic pain medications. Wound care If you have a bandage, leave it on, and keep dry for 48 - 72 hours. After that time discard the outer bandage. If there are tapes on the skin under the outer bandage, leave them in place. They will peel off in the next 7 to 10 days. Do Not peel them off. You may shower 2 days after surgery. If there are tapes present on the skin, they can get wet. When showering allow soap and water to run over the incisions, do not scrub the incisions. Pat dry well afterwards. Do not submerge the incisions (no baths, pools, hot tubs, etc) for 3 weeks. Diet There are no dietary restrictions. Eat healthy, high-fiber foods. Drink 6 to 8 glasses of liquid each day. This will assist in keeping your bowels are regular. Pain management You may take Tylenol or acetaminophen or Ibuprofen (for example, Motrin, Advil etc.) Any pain prescription medication ordered should be taken as prescribed for moderate to severe pain. Do not drive, drink alcohol or operate heavy machinery while taking narcotic pain medications. Call Dr. Gutierrez for any of the following: Severe pain not relieved by medication Fever of 101 or higher Excessive bleeding or drainage on dressing Inability to urinate Call the office at [phone] for a post operative appointment in 7 days. Referrals: Jatinder Webb MD [Staff Physician] - Juan Vaughn DO [Staff Physician] - 1 Week Bernardo Gutierrez MD [Staff Physician] - Carlyle Woodward MD [Staff Physician] - 1 Week Disposition: HOME - Home Medications Comprehensive Discharge Medication List: Ambulatory Orders Ferrous Sulfate 325 mg PO DAILY #30 tablet 12/25/18 This patient is new to me today: No Emergency Visit: Yes ED Registration Date: 12/24/18 Care time: The patient presented to the Emergency Department on the above date and was hospitalized for further evaluation of their emergent condition. Critical Care patient: No - Discharge Referral Referred to [facility] Med P.C.: No Physician Referral: Scot Vaughn DO (GI)
--- NOTE | 2018-12-25 17:32 | PN ---
Physical Exam: SUBJECTIVE: Patient seen and examined. No acute events overnight. Pt. denies any acute complaints. OBJECTIVE: Vital Signs Period Temp Pulse Resp BP Sys/Rocha Pulse Ox Last 24 Hr 98.4 F-99.1 F 64-80 9-21 96-120/54-70 95-100 GENERAL: The patient is awake, alert, and fully oriented, in no acute distress. HEAD: Normal with no signs of trauma. EYES: sclera anicteric, conjunctiva clear. ENT: Ears normal, nares patent, oropharynx clear without exudates, moist mucous membranes. NECK: Trachea midline, full range of motion, supple. LUNGS: Breath sounds equal, clear to auscultation bilaterally, no wheezes, no crackles, no accessory muscle use. HEART: Regular rate and rhythm, S1, S2 without murmur, rub or gallop. ABDOMEN: Soft, Gloria Sign +, nondistended, normoactive bowel sounds, no guarding, no rebound, no hepatosplenomegaly, no masses. EXTREMITIES: 2+ pulses, warm, well-perfused, no calf tenderness, no edema. NEUROLOGICAL: Normal speech, gait not observed. PSYCH: Normal mood, normal affect. SKIN: Warm, dry, normal turgor, no rashes or lesions noted Laboratory Results - last 24 hr 12/25/18 12/25/18 06:30 06:30 WBC 7.1 RBC 3.92 Hgb 8.7 L Hct 26.9 L MCV 68.8 L MCH 22.1 L MCHC 32.1 RDW 17.2 H Plt Count 261 MPV 8.7 Absolute Neuts (auto) 3.6 Neutrophils % 51.1 D Lymphocytes % 35.5 D Monocytes % 11.7 H D Eosinophils % 0.8 D Basophils % 0.9 Nucleated RBC % 0 Sodium 140 Potassium 3.8 Chloride 107 Carbon Dioxide 28 Anion Gap 5 L BUN 5 L Creatinine 0.5 L Creat Clearance w eGFR 135.30 Random Glucose 106 Calcium 7.6 L Ferritin 2.7 L Total Bilirubin 0.4 AST 20 ALT 25 Alkaline Phosphatase 74 Total Protein 6.3 L Albumin 3.0 L Active Medications Home Medications Medication Instructions Recorded Ferrous Sulfate 325 mg PO DAILY #30 tablet 12/25/18 Current Medications Acetaminophen (Ofirmev Injection -) 1,000 mg IVPB Q6H PRN PRN Reason: PAIN OR FEVER Potassium Chloride/Dextrose/Sod Cl (D5-1/2ns+20 Meq Kcl -) 20 meq in 1,000 mls @ 100 mls/hr IV ASDIR LISA Last Admin: 12/25/18 14:17 Dose: 100 mls/hr Morphine Sulfate (Morphine Sulfate) 4 mg IVPUSH Q4H PRN PRN Reason: PAIN LEVEL 7 - 10 Last Admin: 12/25/18 14:21 Dose: 4 mg Pantoprazole Sodium (Protonix Iv) 40 mg IVPUSH DAILY [facility] ASSESSMENT/PLAN: Pt. is a 43 y.o. Guatemalan-speaking F w/ PMHx. of GERD presents to with nausea, vomiting and abdominal pain. Labs notable for anemia to 9.6 and LFTs wnl. Physical Exam notable for epigastric tenderness #Abdominal Pain 2/2 Cholelithiasis POD #1 CT A/P shows 15mm stone in gallbladder neck w/o biliary duct dilatation; f/u official read Surgery consulted (Dr. Gutierrez)- D/c Zosyn, was given Ceftriaxone and Flagyl yesterday pre-op. No elevation in WBCs (borderline @ 9.9), afebrile Lipase:129; LFTs wnl c/w Protonix 40mg IV UA - Morphine Q4H PRN, Tylenol PRN f/u CXR #Anemia HgB: 9.6 likely iron deficiency anemia as Pt. endorses irregular menses unusually long LMP, RDW: 17.4 and MCV of 69.3 Low Iron, Low ferrtin Given IV Venofer c/w Ferrous Sulfate 325mg Pt. would benefit from outpatient FARE COLLECTOR referral as Pt. denies ever seeing one. Incidental finding of involuting ovarian cyst. #FEN D5-1/2NS @ 100 monitor electrolyte and replete as needed Regular Diet #DVT Ppx. TEDs and SCDs Visit type - Emergency Visit Emergency Visit: Yes ED Registration Date: 12/24/18 Care time: The patient presented to the Emergency Department on the above date and was hospitalized for further evaluation of their emergent condition. - New Patient This patient is new to me today: No - Critical Care Critical Care patient: No - Discharge Referral Referred to [facility] Med P.C.: No
[2018-12-26 04:10] LABS: SERUM IRON SATURATION 4 % (15-55); TOTAL IRON BINDING CAPACITY 331 ug/dL (250-450); UIBC 318 ug/dL (131-425)
--- NOTE | 2018-12-26 06:52 | OP ---
DATE OF OPERATION: 12/25/2018 PREOPERATIVE DIAGNOSIS: Acute cholecystitis. POSTOPERATIVE DIAGNOSIS: Acute cholecystitis. PROCEDURE PERFORMED: Laparoscopic cholecystectomy. ATTENDING SURGEON: Bernardo Gutierrez MD AMUSEMENT PARK ENTERTAINER: Yared José MD ANESTHESIOLOGIST: Afsaneh Calabrese MD ANESTHESIA TYPE: General with local, local consisting of 0.5% Marcaine, a total of 20 mL given at the port sites. ESTIMATED BLOOD LOSS: 10 mL. INTRAVENOUS FLUID ADMINISTERED: 800 mL. SPECIMEN: Gallbladder. BRIEF FINDINGS: The patient had an edematous gallbladder with dense adhesions of omentum to colon. The critical view of safety was established and cystic structures were controlled with Weck Clips, 5 mm. INDICATIONS: The patient is a 43-year-old female with history of right upper quadrant abdominal pain for 3 days, seen in the emergency room, confirmed to have acute cholecystitis on ultrasound and CT. She was counseled regarding the risks, benefits and alternatives of surgical cholecystectomy, signed informed consent and was taken for the procedure. DESCRIPTION OF PROCEDURE: The patient was brought to the operating room. She was placed in the supine position on the operating table, with the right arm tucked and the left arm extended at 90 degrees perpendicular to the body's midline axis. Lower extremities had SCDs placed to compression. The patient was induced with anesthesia and endotracheally intubated without incident by Anesthesia. We began first with an anterior abdominal wall prep and drape in the standard surgical fashion, blocking the right upper quadrant. At this time a formal a formal time-out was done, identifying the operative site and procedure. The skin was scribed for Yolanda entry, and it was incised with a 15 blade scalpel. It was deepened through the subcutaneous tissue using Bovie cautery until the anterior fascia of the rectus. This was retracted into the surgical field and opened, held with Kochers, while a [id number] 0 Vicryl stitch was placed across the defect to allow for closure postoperatively. At this point a 12-mm Yolanda port was installed into the abdomen and pneumoperitoneum was established to 15 mmHg. With this done, additional port sites at the subxiphoid position as well as the right abdomen were placed under direct visualization. The gallbladder was then grabbed at the dome. It was somewhat tense, edematous and distended. It was retracted cranially and towards the left shoulder. The gallbladder's infundibulum then had the dense adhesions peeled with a combination of Bovie hook cautery and [place] dissector to expose the infundibulum. It was then grasped and the cystic structures were identified and isolated. Planes were developed at the cystic artery and cystic duct interface, and then just posterior to the cystic artery. With this completely exposed, the critical view of safety was noted, at which point the cystic structures were taken with 5-mm Weck Clips and then transected with Endo Inocencio. The gallbladder was then carefully taken off the hepatic bed at the interface of segments 4 and 5 of the liver, with Bovie cautery. Hemostasis was obtained throughout the dissection. The gallbladder was then retrieved from the abdomen, after resetting the camera to the subxiphoid position, with the 10-mm Endo Catch bag. The patient had the gallbladder removed, and then it was passed off for final pathologic diagnosis. The area was suctioned of clots and a small amount of ascites, at which time we then turned our attention to release of the pneumoperitoneum and closure of the abdomen. The Yolanda entry port was ablated with the 0 Vicryl [id number]. The skin was then cleaned and was closed in subcuticular fashion with 4-0 Vicryl. The skin was cleaned. Sterile dressings were placed, including benzoin and Steri-Strips, as well as gauze sponges and Tegaderm. All counts were correct postoperatively. The patient was stable throughout. She was awakened and extubated in the operating room. MD DAVID Srivastava/[id number]
[2018-12-26 07:15] LABS: BASO % 0.4 % (0-2.0); EOS % 0.2 % (0-4.5); HEMATOCRIT 26.6 % (32.4-45.2); HEMOGLOBIN 8.8 GM/dL (10.7-15.3); MCH 22.5 pg (25.7-33.7); MCHC 33.1 g/dl (32.0-36.0); MEAN PLT VOLUME 8.4 fl (7.5-11.1); MONO % 7.8 % (3.8-10.2); NEUT % 80.6 % (42.8-82.8); PLATELET COUNT 273 K/MM3 (134-434); RBC 3.91 M/mm3 (3.60-5.2); WHITE BLOOD COUNT 9.4 K/mm3 (4.0-10.0)
--- NOTE | 2018-12-26 07:45 | PN ---
Progress Note, Physician Chief Complaint: abdominal pain History of Present Illness: 43 yo female PMH GERD presents to with nausea, vomiting and abdominal pain. at bedside and assisted in translating. Pt. states the abdominal pain started 3 days ago and was intermittent. she has been stable postoperatively - Current Medication List Current Medications: Active Medications Acetaminophen (Ofirmev Injection -) 1,000 mg IVPB Q6H PRN PRN Reason: PAIN OR FEVER Potassium Chloride/Dextrose/Sod Cl (D5-1/2ns+20 Meq Kcl -) 20 meq in 1,000 mls @ 100 mls/hr IV ASDIR LISA Last Admin: 12/25/18 14:17 Dose: 100 mls/hr Morphine Sulfate (Morphine Sulfate) 4 mg IVPUSH Q4H PRN PRN Reason: PAIN LEVEL 7 - 10 Last Admin: 12/25/18 14:21 Dose: 4 mg Pantoprazole Sodium (Protonix Iv) 40 mg IVPUSH DAILY [facility] - Objective Vital Signs: Vital Signs Temperature 99.0 F 12/26/18 06:00 Pulse Rate 65 12/26/18 06:00 Respiratory Rate 18 12/26/18 06:00 Blood Pressure 93/51 L 12/26/18 06:00 O2 Sat by Pulse Oximetry (%) 96 12/25/18 22:43 Constitutional: Yes: Well Nourished, No Distress, Calm Eyes: Yes: Conjunctiva Clear, EOM Intact HENT: Yes: Atraumatic, Normocephalic Neck: Yes: Supple, Trachea Midline Cardiovascular: Yes: Regular Rate and Rhythm, S1, S2 Respiratory: Yes: Regular, CTA Bilaterally Gastrointestinal: Yes: Normal Bowel Sounds, Soft. No: Tenderness, Tenderness, Epigastrium, Tenderness, Rebound ...Rectal Exam: Yes: Deferred Genitourinary: No: CVA Tenderness - Left, CVA Tenderness - Right Musculoskeletal: No: Muscle Pain, Muscle Weakness Extremities: No: Cool, Cyanosis Edema: No Peripheral Pulses WNL: Yes Peripheral Pulses: Left Radial: 2+, Right Radial: 2+, Left Doralis Pedis: 2+, Right Dorsalis Pedis: 2+, Left Femoral: 2+, Right Femoral: 2+ Integumentary: No: Incision, Jaundice, Skin Tear Wound/Incision: Yes: Clean/Dry, Well Approximated, Dressing Dry and Intact Neurological: Yes: Alert, Oriented Psychiatric: Yes: Alert, Oriented Labs: INR, PTT INR 1.10 (0.83-1.09) H 12/24/18 06:30 Problem List - Problems (1) Cholecystitis Assessment/Plan: 43 you female with early acute cholecystitis, POD#1 s/p Lap Cholecystetocmy Diet as tolerated stop antibiotics adequate analgesia encourage IS OOB and ambulate Discharge at the discretion of the primary team Code(s): K81.9 - CHOLECYSTITIS, UNSPECIFIED (2) Advanced maternal age (AMA) in Code(s): LIF9703 - (3) Cholelithiasis Code(s): K80.20 - CALCULUS OF GALLBLADDER W/O CHOLECYSTITIS W/O OBSTRUCTION Qualifiers: Cholelithiasis location: gallbladder Cholecystitis presence: without cholecystitis Biliary obstruction: without biliary obstruction Qualified Code(s): K80.20 - Calculus of gallbladder without cholecystitis without obstruction
[2018-12-26] MEDS ORDERED: IRON SUCROSE INJECTION 200 MG in SODIUM CHLORIDE 90 ML IVPB ONE (09:00)
[2018-12-26] MEDS: D5-1/2NS+20 MEQ KCL - 20 MEQ/1,000 ML INFUS.BAG IV SCH (09:33)
[2018-12-26] MEDS ORDERED: PANTOPRAZOLE SODIUM 40 MG VIAL IVPUSH SCH (10:00)
[2018-12-26] MEDS ORDERED: CEFTRIAXONE 2 GM-D5W BAG 2 GM/50 ML BAG IVPB SCH (10:00)
[2018-12-26 10:14] LABS: ALBUMIN 2.9 g/dl (3.4-5.0); BLOOD UREA NITROGEN 6 mg/dL (7-18); CALCIUM 8.2 mg/dL (8.5-10.1); CHLORIDE 106 mmol/L (98-107); GLUCOSE,RANDOM 103 mg/dL (74-106); POTASSIUM 3.8 mmol/L (3.5-5.1); SODIUM 137 mmol/L (136-145)
[2018-12-26 10:15] LABS: SGOT/AST 31 U/L (15-37); SGPT/ALT 38 U/L (13-61)
[2018-12-26 10:16] LABS: ALK PHOS 76 U/L (45-117); ANION GAP 8 MMOL/L (8-16); BILIRUBIN,TOTAL 0.2 mg/dL (0.2-1); CO2 23 mmol/L (21-32); CREATININE 0.5 mg/dL (0.55-1.3); MAGNESIUM 1.8 mg/dL (1.8-2.4); PHOSPHOROUS 3.5 mg/dL (2.5-4.9); TOT PROT 6.6 g/dl (6.4-8.2)
--- NOTE | 2018-12-26 12:15 | PN ---
Teaching Attending Note Name of Resident: Miguel Angel Peoples ATTENDING PHYSICIAN STATEMENT I saw and evaluated the patient. I reviewed the resident's note and discussed the case with the resident. I agree with the resident's findings and plan as documented. SUBJECTIVE:asymptomatic. tolerating diet. denies Cp, SOB, fever, chills, abdominal pain, OBJECTIVE: Last Vital Signs Temp Pulse Resp BP Pulse Ox 99.7 F H 73 20 103/67 96 12/26/18 09:00 12/26/18 09:00 12/26/18 09:00 12/26/18 09:00 12/25/18 22:43 General NAD CV S1 S2 RRR no murmur/rub/gallop Lungs CTA B/L no wheezing/rlaes/rhonchi Abdomen soft mild tender around surgical incisions which are bandaged c/d/i ASSESSMENT AND PLAN: 43 year old female with history of GERD presents with epigastric abdominal pain , nausea, found to have acute cholecystitis. 1. Acute Cholecystitis- s/p Laprascopic cholecystectomy 12/25. tolerated surgery. tolerating diet. Surgical follow up in 1 week 2. Severe iron def anemia- Hgb has been stable. no signs of bleeding. received Venofer yesterday, will give 2nd dose today. will d/c on iron supplementation. educated on side effects and encouraged should follow up with PMD for IV iron as this will replace stores quicker with less side effects. monitor for constipation and monitor for black stools are common side effects. GI follow up as outpatient for to r/o alternative causes for anemia 3. d/c home today
[2018-12-26 14:01] VITALS: BP 100/66; PULSE 68; TEMP 98.8
--- NOTE | 2018-12-26 14:04 | PN ---
Progress Note (short form) - Note Progress Note: Anesthesia POD#1 S/P Laproscopic Cholecystectomy under GA VSS,no pain.no N/V,no injuries. Afsaneh Calabrese MD.
--- NOTE | 2018-12-26 18:40 | PATH ---
Surgical Pathology Report Patient Name: OPAL CLEARY Med. Rec. #: [id number] /Age/Gender: 1975 (Age: 43) / F Account: [id number] Location: [address] [place] [id number] Taken: 12/25/2018 Received: 12/25/2018 Reported: 12/26/2018 Physicians: MD Bernardo Stahl M.D. Specimen(s) Received GALLBLADDER Clinical History Acute cholecystitis Final Diagnosis GALLBLADDER, LAPAROSCOPIC CHOLECYSTECTOMY: ACUTE AND CHRONIC CHOLECYSTITIS WITH CHOLELITHIASIS. Electronically Signed Adilia Harry M.D. Gross Description Received in formalin, labeled "gallbladder," is a 7.4 x 3.4 x 3.0 cm. gallbladder with a 0.2 cm. in length portion of cystic duct attached. The outer surface is chambers-red and varies from smooth to shaggy. The lumen contains red blood as well as a 2.5 cm in greatest dimension yellow-green, ovoid cholelith. The mucosa is hyperemic. The wall of the gallbladder measures up to 0.5 cm. in thickness. Enforcement Officer sections are submitted in one cassette. /12/25/2018 saudi12/25/2018
== END 2018-12-26 15:29 | disposition home or self-care (01) | DRG 263 ==
LOC: JER 20:19 → JERBED 12-24 01:08 → J6S 12-24 10:19
PROVIDERS: ADMIT Internal Medicine; ATTEND Internal Medicine
PROC: 0FT44ZZ Resection of Gallbladder, Percutaneous Endoscopic Approach (ICD-10-PCS; principal; 2018-12-25 10:00)
DX: K80.00 Calculus of gallbladder with acute cholecystitis without obstruction (principal); K21.9 Gastro-esophageal reflux disease without esophagitis; E66.3 Overweight; Z68.28 Body mass index [BMI] 28.0-28.9, adult; D50.9 Iron deficiency anemia, unspecified
CPT/HCPCS: 36415; 71045-TC-FY; 74177-TC; 80053; 81003; 82272; 82550; 82728; 83540; 83550; 83690; 83735; 84100; 84484; 84703; 85025; 85610; 86850; 86900; 86901; 87086; 88304-TC; 93005; 93010; 94760; 99283-25; J0131; J1756; J7030

== ENCOUNTER 2024-07-06 19:22 | Emergency (ER) | payer OTHER ==
[2024-07-06 19:27] VITALS: BP 133/82; PULSE 93; RESP 18; TEMP 99.1; BMI 30.4
[2024-07-06 20:43] LABS: EPI CELLS 2 /uL (0-25.1); HYALINE CASTS 0 /uL (0-3.1); URINE APPEARANCE CLOUDY; URINE BACTERIA 952 /uL (0-1359); URINE BILIRUBIN NEGATIVE (NEGATIVE); URINE COLOR YELLOW; URINE GLUCOSE (UA) NEGATIVE (NEGATIVE); URINE KETONE NEGATIVE (NEGATIVE); URINE LEUK ESTERASE 3+ (NEGATIVE); URINE NITRITE NEGATIVE (NEGATIVE); URINE PROTEIN 1+ (NEGATIVE); URINE RBC 176 /uL (0-23.9); URINE UROBILINOGEN 0.2 mg/dL (0.2-1.0); URINE WBC 2386 /uL (0-25.8)
== END 2024-07-06 21:13 | disposition home or self-care (01) ==
LOC: JERFT 19:22 → JER 19:22 → JERFT 21:13
DX: R35.0 Frequency of micturition (principal); R30.0 Dysuria; R39.15 Urgency of urination; R31.9 Hematuria, unspecified; M54.50 Low back pain, unspecified; N39.0 Urinary tract infection, site not specified
CPT/HCPCS: 81003; 84703; 87086; 87186; 99283-25